=== PATIENT | female | born 1980 | race African-American/Black ===

== ENCOUNTER 2019-02-22 22:17 | Emergency (ER) | payer BC ==
[~2019-02-22] VITALS: Ht 185.4 cm; Wt 106.6 kg
[2019-02-22 22:25] VITALS: BP 143/90
--- NOTE | 2019-02-22 22:31 | PHYS DOC ---
Adult General Chief Complaint Chief Complaint: LOWEREXTREMITY INJURY HPI HPI Patient is a 38 year old female who presents with mild pain on the right ankle, right calf, right knee, pain began after she slipped on a wet floor in [facility] and fell. Denies any loss of consciousness. States most of her pain is on range of motion. Denies anything specifically relieving her pain. She describes the pain as sharp and intermittent. (LAMONT SINGH APRN) Review of Systems Review of Systems Constitutional: Denies fever or chills [] Musculoskeletal: Reports right knee, right ankle, right calf pain Integument: Denies rash or skin lesions [] Neurologic: Denies headache, focal weakness or sensory changes [] All other systems were reviewed and found to be within normal limits, except as documented in this note. (LAMONT SINGH APRN) Current Medications Current Medications Current Medications Medications (Trade) Dose Ordered Sig/Taylor Start Time Stop Time Status Last Admin Dose Admin Acetaminophen/ Hydrocodone Bitart (Lortab 5/325) 2 tab 1X ONCE 02/23/19 00:00 02/23/19 00:00 DC 02/22/19 23:51 2 TAB Clonidine HCl (Catapres) 0.1 mg PRN Q1HR PRN 02/22/19 23:15 Cancel Lorazepam (Ativan Inj) 2 mg PRN Q1HR PRN 02/22/19 23:15 Cancel Multivitamins 10 ml/Thiamine HCl 100 mg/Folic Acid 1 mg/Sodium Chloride 1,011.2 ml @ 100 mls/ hr 1X ONCE 02/22/19 23:45 02/23/19 09:51 Cancel Naproxen (Naprosyn) 500 mg 1X ONCE 02/23/19 00:00 02/23/19 00:00 DC 02/22/19 23:52 500 MG Ondansetron HCl (Zofran) 4 mg PRN Q8HRS PRN 02/22/19 23:15 02/23/19 23:14 Cancel Sodium Chloride 1,000 ml @ 100 mls/hr 1X ONCE 02/22/19 23:15 02/23/19 09:14 Cancel (TESFAYE TOMLIN DO) Allergies Allergies Allergies Coded Allergies Type Severity Reaction Last Updated Verified No Known Drug Allergies 02/22/19 No (TESFAYE TOMLIN DO) Physical Exam Physical Exam Constitutional: Well developed, well nourished, no acute distress, non-toxic appearance. [] Skin: Warm, dry, no erythema, no rash. [] Back: No tenderness, no CVA tenderness. [] Extremities: Diffuse tenderness of the right ankle, no tenderness to the right knee, ROM intact to the right lower extremity, no edema. +2 right pedal pulse Neurologic: Alert and oriented X 3, normal motor function, normal sensory function, no focal deficits noted. [] Psychologic: Affect normal, judgement normal, mood normal. [] (LAMONT SINGH APRN) Current Patient Data Vital Signs Vital Signs Date Time Temp Pulse Resp B/P (MAP) Pulse Ox O2 Delivery O2 Flow Rate FiO2 02/22/19 23:51 16 96 Room Air 02/22/19 22:25 98.1 74 143/90 (107) 98.1 (TESFAYE TOMLIN DO) EKG EKG [] (LAMONT SINGH APRN) Radiology/Procedures Radiology/Procedures [] (LAMONT SINGH APRN) Course & Med Decision Making Course & Med Decision Making Pertinent Labs and Imaging studies reviewed. (See chart for details) This is a 38-year-old female patient presented to the ED today with right ankle, right calf, right knee pain status post falling. Right ankle, right knee, right tib-fib x-rays interpreted by Dr. Tomlin are negative for any acute findings. Ice elevation encouraged. OTC pain relievers. Follow-up with orthopedic doctor in 1-2 weeks (LAMONT SINGH APRN) Dragon Disclaimer Dragon Disclaimer This electronic medical record was generated, in whole or in part, using a voice recognition dictation system. (LAMONT SINGH APRN) Departure Departure Impression: Primary Impression: Fall from standing Additional Impressions: Right ankle sprain Right knee sprain Disposition: 01 HOME, SELF-CARE Condition: STABLE Referrals: SARAVANAN ROMERO II, MD Follow-up in 1- 2 weeks if pain persists Patient Instructions: Fall Prevention and Home Safety, Joint Sprain Additional Instructions: You evaluated in the emergency room after falling, your x-rays were negative for any acute findings. Try to ice and elevate the affected extremity. Take [id number] pain relievers as needed for pain. Follow-up with your own doctor the provided orthopedic doctor in 1-2 weeks if pain persists. Attending Signature Attending Signature I have reviewed the PA/METEOROLOGY FACULTY MEMBER's note and plan of care. I was available for consultation as needed during the patient's visit in the emergency department. I agree with the clinical impression, plan, and disposition. (TESFAYE TOMLIN DO) Problem Qualifiers Primary Impression: Fall from standing Encounter type: initial encounter Qualified Codes: W19.XXXA - Unspecified fall, initial encounter Additional Impressions: Right ankle sprain Encounter type: initial encounter Involved ligament of ankle: unspecified ligament Qualified Codes: S93.401A - Sprain of unspecified ligament of right ankle, initial encounter Right knee sprain Encounter type: initial encounter Involved ligament of knee: unspecified ligament Qualified Codes: S83.91XA - Sprain of unspecified site of right knee, initial encounter LAMONT SINGH APRN Feb 22, 2019 22:31 TESFAYE TOMLIN DO Feb 23, 2019 05:41
[2019-02-22] MEDS ORDERED: IV NORMAL SALINE 1000ML BAG 1,000 ML IV ONE (23:15)
[2019-02-22] MEDS ORDERED: cloNIDine HCL 0.1 MG TABLET PO PRN (23:15)
[2019-02-22] MEDS ORDERED: ONDANSETRON PF 4 MG/2 ML VIAL. IV PRN (23:15)
[2019-02-22] MEDS ORDERED: MULTIVIT INFUSN,ADULT 4,VIT K 10 ML, THIAMINE INJ 100 MG, FOLIC ACID INJ 1 MG in IV NOR... IV ONE (23:45)
[2019-02-23] MEDS ORDERED: NAPROXEN 500 MG TABLET PO ONE
[2019-02-23] MEDS ORDERED: HYDROcodone/APAP 5/325MG 1 TAB TABLET PO ONE
--- NOTE | 2019-02-23 08:09 | RAD ---
Exam performed: Right knee, tibia-fibula and ankle . Indication: fall. Date of Service: 02/22/19. Comparison: None available Three views right ankle findings: Normal alignment of the ankle mortise is preserved. There is no acute fracture or dislocation. There is no soft tissue swelling or foreign body. Impression: 1. No acute bony abnormality seen. End impression 3 views [right] knee findings: Normal alignment of the medial and lateral tibiofemoral joint is preserved. The patellofemoral joint appears unremarkable. The articular margins are smooth. There is no fracture or dislocation. Evidence of calcific loose body or joint effusion is absent. Impression: 1. No acute radiographic abnormality seen. End impression 2 views right tibia-fibula findings: Normal alignment of the knee and ankle joint is preserved. There is no acute fracture or dislocation. No soft tissue swelling or foreign body seen. IMPRESSION: 1. Negative exam Electronically signed by: Florence Barrow MD (02/23/2019 8:06 AM) [facility]
== END 2019-02-22 23:49 | disposition home or self-care (01) ==
LOC: ER 22:17
DX: S93.491A Sprain of other ligament of right ankle, initial encounter (principal); S83.8X1A Sprain of other specified parts of right knee, initial encounter; M79.661 Pain in right lower leg; W01.0XXA Fall on same level from slipping, tripping and stumbling without subsequent striking against object, initial encounter; Y93.89 Activity, other specified; Y92.512 Supermarket, store or market as the place of occurrence of the external cause; Y99.8 Other external cause status
CPT/HCPCS: 73564; 73590; 73610; 99284